=== PATIENT | male | born 1950 | race Caucasian/White ===

== ENCOUNTER 2018-07-10 18:45 | Inpatient (IN) | payer OTHER ==
[2018-07-10 19:39] LABS: ADD MAN DIFF? NO; BASOPHIL # 0.1 10^3/ul (0.0-0.1); BASOPHILS % 0.5 % (0.0-2.0); EOSINOPHILS # 0.3 10^3/ul (0.0-0.5); EOSINOPHILS % 2.9 % (0.0-7.0); HEMATOCRIT 43.2 % (42.0-52.0); HEMOGLOBIN 14.4 g/dl (14.0-18.0); LYMPHOCYTES # 4.1 10^3/ul (0.8-2.9); LYMPHOCYTES % 43.1 % (15.0-51.0); MEAN CORPUSCULAR HEMOGLOBIN 32.1 pg (29.0-33.0); MEAN CORPUSCULAR HGB CONC 33.3 g/dl (32.0-37.0); MEAN CORPUSCULAR VOLUME 96.4 fl (82.0-101.0); MONOCYTE # 0.8 10^3/ul (0.3-0.9); MONOCYTES % 8.4 % (0.0-11.0); NEUTROPHIL # 4.3 10^3/ul (1.6-7.5); NEUTROPHILS % 44.7 % (39.0-77.0); PLATELET COUNT 245 10^3/UL (140-415); RED BLOOD COUNT 4.48 10^6/ul (4.70-6.10); RED CELL DISTRIBUTION WIDTH 12.2 % (11.5-14.5)
[2018-07-10 19:39] LABS: WHITE BLOOD COUNT 9.6 10^3/ul (4.8-10.8)
[2018-07-10 19:45] LABS: ALANINE AMINOTRANSFERASE 22 IU/L (13-69); ALBUMIN 4.7 g/dl (3.3-4.9); ALBUMIN/GLOBULIN RATIO 1.51; ALKALINE PHOSPHATASE 122 IU/L (42-121); ANION GAP 15 (8-16); ASPARTATE AMINO TRANSFERASE 26 IU/L (15-46); BILIRUBIN,INDIRECT 0.3 mg/dl (0-1.1); BILIRUBIN,TOTAL 0.3 mg/dl (0.2-1.3); BLOOD UREA NITROGEN 18 mg/dl (7-20); CALCIUM 9.5 mg/dl (8.4-10.2); CARBON DIOXIDE 26 mmol/L (21-31); CHLORIDE 104 mmol/L (97-110); CHOL/HDL RATIO 3.7 RATIO; CHOLESTEROL 207 mg/dl (100-200); CREATINE KINASE 74 IU/L (23-200); CREATININE 1.07 mg/dl (0.61-1.24); GLUCOSE 91 mg/dl (70-220); HDL CHOLESTEROL 55 mg/dl (31-75); LDL CHOLESTEROL,CALCULATED 86 mg/dl; POTASSIUM 3.6 mmol/L (3.5-5.1); PROTIME 12.2 Sec (11.9-14.9); SODIUM 141 mmol/L (135-144); TOTAL PROTEIN 7.8 g/dl (6.1-8.1); TRIGLYCERIDES 328 mg/dl (0-149)
[2018-07-10 19:46] LABS: PARTIAL THROMBOPLASTIN TIME 30.7 Sec (23.0-35.0)
[2018-07-10 20:02] LABS: CK INDEX 0.9; TROPONIN-I < 0.012 ng/ml (0.000-0.120)
[2018-07-10 20:07] LABS: ETHANOL < 10.0 mg/dl
[2018-07-10 20:10] LABS: ADD UMIC NO; UR ASCORBIC ACID NEGATIVE (NEGATIVE); UR BILIRUBIN (Dip) NEGATIVE (NEGATIVE); UR BLOOD (Dip) NEGATIVE (NEGATIVE); UR CLARITY CLEAR (CLEAR); UR COLOR COLORLESS (YELLOW); UR GLUCOSE (Dip) 1+ mg/dL (NEGATIVE); UR KETONES (Dip) NEGATIVE (NEGATIVE); UR LEUKOCYTE ESTERASE (Dip) NEGATIVE Leu/ul (NEGATIVE); UR NITRITE (Dip) NEGATIVE (NEGATIVE); UR TOTAL PROTEIN (Dip) NEGATIVE (NEGATIVE); UR UROBILINOGEN (Dip) NEGATIVE (NEGATIVE)
[2018-07-10] MEDS: SOD CHLORIDE 0.9% 1,000 ML IV (20:11)
[2018-07-10] MEDS: CLOPIDOGREL 75 MG TAB PO (20:11)
[2018-07-10] MEDS: ASPIRIN 81 MG TAB PO (20:11)
[2018-07-10 20:23] LABS: AMPHETAMINE/METHAMPHETAMINE Negative (NEGATIVE); BARBITURATES Negative (NEGATIVE); BENZODIAZEPINES Negative (NEGATIVE); CANNABINOIDS Negative (NEGATIVE); COCAINE Negative (NEGATIVE); OPIATES Negative (NEGATIVE)
[2018-07-10 21:14] LABS: HEMOGLOBIN A1C 6.5 % (0-5.9)
[2018-07-10] MEDS ORDERED: hydrALAzine 20 MG INJ (21:41)
[2018-07-10] MEDS ORDERED: ALBUTEROL/IPRATROPIUM (NEB) 3 ML AMP HHN (22:00)
[2018-07-10] MEDS ORDERED: ACETAMINOPHEN 325 MG TAB PO (22:00)
[2018-07-10] MEDS ORDERED: ONDANSETRON 4 MG INJ IV (22:00)
[2018-07-10] MEDS ORDERED: NACL 0.9% 3 ML SYG IV (22:00)
[2018-07-10] MEDS: hydrALAzine 20 MG INJ IV (22:20)
[2018-07-10] MEDS: LABETALOL HCL 20MG INJ IV (22:30)
[2018-07-10] MEDS: SOD CHLORIDE 0.9% 100 ML (22:31)
[2018-07-10] MEDS: IOHEXOL 100 ML (22:31)
[2018-07-10 22:36] LABS: CREATINE KINASE 82 IU/L (23-200)
[2018-07-10 22:50] LABS: CK INDEX 0.9; CK-MB 0.71 ng/ml (0.0-2.4); TROPONIN-I < 0.012 ng/ml (0.000-0.120)
[2018-07-11 06:13] LABS: ADD MAN DIFF? NO
[2018-07-11 06:30] LABS: BASOPHIL # 0.1 10^3/ul (0.0-0.1); BASOPHILS % 0.5 % (0.0-2.0); EOSINOPHILS # 0.1 10^3/ul (0.0-0.5); EOSINOPHILS % 0.6 % (0.0-7.0); HEMATOCRIT 40.2 % (42.0-52.0); HEMOGLOBIN 13.5 g/dl (14.0-18.0); LYMPHOCYTES # 1.9 10^3/ul (0.8-2.9); LYMPHOCYTES % 19.3 % (15.0-51.0); MEAN CORPUSCULAR HEMOGLOBIN 32.3 pg (29.0-33.0); MEAN CORPUSCULAR HGB CONC 33.6 g/dl (32.0-37.0); MEAN CORPUSCULAR VOLUME 96.2 fl (82.0-101.0); MEAN PLATELET VOLUME 10.8 fl (7.4-10.4); MONOCYTE # 0.9 10^3/ul (0.3-0.9); MONOCYTES % 8.7 % (0.0-11.0); NEUTROPHIL # 7.1 10^3/ul (1.6-7.5); NEUTROPHILS % 70.6 % (39.0-77.0); PLATELET COUNT 222 10^3/UL (140-415); RED BLOOD COUNT 4.18 10^6/ul (4.70-6.10); RED CELL DISTRIBUTION WIDTH 12.4 % (11.5-14.5)
[2018-07-11 06:46] LABS: CREATINE KINASE 102 IU/L (23-200)
[2018-07-11 06:58] LABS: CK INDEX 0.7; CK-MB 0.73 ng/ml (0.0-2.4); TROPONIN-I 0.017 ng/ml (0.000-0.120)
[2018-07-11 07:01] LABS: ALANINE AMINOTRANSFERASE 20 IU/L (13-69); ALBUMIN/GLOBULIN RATIO 1.48; ALKALINE PHOSPHATASE 103 IU/L (42-121); ASPARTATE AMINO TRANSFERASE 23 IU/L (15-46); BILIRUBIN,INDIRECT 0.5 mg/dl (0-1.1); BILIRUBIN,TOTAL 0.5 mg/dl (0.2-1.3); BLOOD UREA NITROGEN 15 mg/dl (7-20); CARBON DIOXIDE 27 mmol/L (21-31); CHLORIDE 107 mmol/L (97-110); CHOL/HDL RATIO 3.2 RATIO; CHOLESTEROL 175 mg/dl (100-200); CREATININE 0.92 mg/dl (0.61-1.24); GLUCOSE 125 mg/dl (70-220); HDL CHOLESTEROL 54 mg/dl (31-75); LDL CHOLESTEROL,CALCULATED 93 mg/dl; SODIUM 141 mmol/L (135-144); TOTAL PROTEIN 6.7 g/dl (6.1-8.1); TRIGLYCERIDES 141 mg/dl (0-149)
[2018-07-11 07:07] LABS: ANION GAP 11 (8-16); POTASSIUM 3.8 mmol/L (3.5-5.1)
[2018-07-11 07:09] LABS: HEMOGLOBIN A1C 6.6 % (0-5.9)
[2018-07-11] MEDS: ASPIRIN 81 MG TAB PO (08:44)
[2018-07-11] MEDS: metFORMIN 500 MG TAB PO ×2 (08:44→18:05)
[2018-07-11] MEDS: CLOPIDOGREL 75 MG TAB PO (08:44)
[2018-07-11] MEDS: HEPARIN 5,000 UNIT/0.5 ML VIAL SC ×2 (09:00→21:11)
[2018-07-11] MEDS: TAMSULOSIN (SR) 0.4 MG CAP PO (21:08)
[2018-07-11] MEDS: ATORVASTATIN 20 MG TAB PO (21:08)
[2018-07-12] MEDS: CLOPIDOGREL 75 MG TAB PO (09:32)
[2018-07-12] MEDS: metFORMIN 500 MG TAB PO (09:32)
[2018-07-12] MEDS: ASPIRIN 81 MG TAB PO (09:33)
[2018-07-12] MEDS: HEPARIN 5,000 UNIT/0.5 ML VIAL SC (09:51)
[2018-07-12 12:22] LABS: ERYTHROCYTE SEDIMENTATION RATE 4 mm/Hr (0-20)
[2018-07-12 15:55] LABS: RAPID PLASMA REAGIN NONREACTIVE (NR)
== END 2018-07-12 17:16 | disposition home or self-care (01) | DRG 69 ==
LOC: E/R 18:45 → TEL 20:34
PROVIDERS: Internal Medicine
DX: G45.9 Transient cerebral ischemic attack, unspecified (principal); G93.40 Encephalopathy, unspecified; E11.9 Type 2 diabetes mellitus without complications; N40.0 Benign prostatic hyperplasia without lower urinary tract symptoms; E78.5 Hyperlipidemia, unspecified
CPT/HCPCS: 36415; 70450; 70496; 70498; 70551; 71045; 80053; 80061; 80307; 81003; 82550; 82553; 82962; 83036; 83735; 84443; 84484; 85025; 85610; 85651; 85730; 86592; 92610; 93005; 93306; 97161; 99285-25